=== PATIENT | male | born 1945 | race Caucasian/White ===

== ENCOUNTER 2018-12-25 08:21 | Outpatient (CLI) | payer MEDICARE ==
[2018-12-25 08:57] LABS: Estimated GFR-MDRD - POC Greater than 90
--- NOTE | 2018-12-25 13:00 | MRI ---
MRI PROSTATE WITH AND WITHOUT CONTRAST: HISTORY: Elevated PSA. TECHNIQUE: Multiplanar, multisequence MR images were obtained of the prostate with and without IV contrast. FINDINGS: There is moderate hypertrophy of the central gland, consistent with BPH. No suspicious low T2 signal lesion is seen throughout the prostate. No restricted diffusion is seen in the peripheral zone of the prostate. No low signal is seen in the ADC map in the peripheral zone of the prostate. No suspicious enhancement is seen. The seminal vesicles are intact and unremarkable. The neurovascular bundles are intact. No pelvic sherwin nopathy is seen. There are scattered diverticula in the colon. No marrow signal abnormality is present. IMPRESSION: 1. PI-RADS category 2 - low likelihood that a clinically significant cancer is present. 2. Diverticulosis. POS: CET
== END 2018-12-25 08:22 | disposition home or self-care (01) ==
LOC: TBSIIMAG 08:21
PROVIDERS: ATTEND Urology
DX: R97.20 Elevated prostate specific antigen [PSA] (principal); K57.90 Diverticulosis of intestine, part unspecified, without perforation or abscess without bleeding
CPT/HCPCS: 72197; 82565

== ENCOUNTER 2023-12-19 12:30 | Outpatient (CLI) | payer MEDICARE | END 2023-12-19 12:31 | disposition home or self-care (01) | LOC: PET 12:30 | PROVIDERS: ATTEND Urology | DX: C61 Malignant neoplasm of prostate (principal); R91.1 Solitary pulmonary nodule; R94.8 Abnormal results of function studies of other organs and systems | CPT/HCPCS: 78815; A9552; A9595 ==